=== PATIENT | female | born 2000 | race Two or more races ===

== ENCOUNTER 2025-04-16 15:11 | Emergency (ER) | payer BC ==
[~2025-04-16] VITALS: Ht 165.1 cm; Wt 63.5 kg
[2025-04-16 15:16] VITALS: BP 108/72; TEMP 98
[2025-04-16 15:33] VITALS: O2SAT 99
== END 2025-04-16 15:35 | disposition home or self-care (01) ==
LOC: ER 15:19
DX: R11.10 Vomiting, unspecified (principal); R19.7 Diarrhea, unspecified